=== PATIENT | female | born 1945 | race Caucasian/White ===

== ENCOUNTER 2017-11-04 01:08 | Observation (INO) | END 2017-11-06 16:15 | disposition home or self-care (01) ==

== ENCOUNTER 2019-04-10 10:55 | Emergency (ER) | payer MEDICARE, OTHER ==
[~2019-04-10] VITALS: Ht 160 cm; Wt 78.6 kg
[~2019-04-10 10:55] MED LIST: ASPI-1044 PO; ATOR40TA68 PO; BENA40TA54 PO; CALC-72 PO; ERGO500013 PO; NORT25CA PO; OMEP40CA6 PO; POTA10TA37 PO; TIOT18CA IH
[2019-04-10 10:58] VITALS: Ht 160 cm; Wt 78.6 kg
[2019-04-10] MEDS ORDERED: BACITRACIN 0.9 GM OINT TOP ONE (13:00)
[2019-04-10] MEDS ORDERED: DIPHTH/TET/ACEL PERTUSS (ADULT) 0.5 ML VIAL IM* ONE (13:00)
--- NOTE | 2019-04-10 13:22 | ERD ---
ER Documentation Chief Complaint Chief Complaint head/face injury x4 hours post slip/fall -JANNETTE DE DIOS This is a 73-year-old female with a past medical history of hypertension, hyperlipidemia, COPD, GERD who is presenting after a mechanical fall. The patient was walking when she lost her balance and fell forward. It was a ground-level fall. The patient did hit her face. She sustained abrasions to the face and a small superficial laceration to the bridge of the nose. The patient does have swelling around the right eye, but she does not have any ocular complaints. She does not endorse any vision changes. She has no blurry vision or double vision. The patient is able to move her eyes in all directions without discomfort or pain. The patient does not report any loss of consciousness. She does endorse mild aching around her injuries, but otherwise she feels well. The patient does not endorse any neck or back pain. She does not endorse any chest pain or trouble breathing. She does not endorse any abdominal pain. She does not endorse any cardiothoracic or abdominal injury. The patient was ambulatory after the event, but she does endorse landing on her knees when she fell. She does have mild soreness and a small abrasion to the right knee. The patient is able to range all extremities fully in the emergency department currently. She has no saddle anesthesia. She denies any incontinence or retention of urine or stool. The patient does not endorse a syncopal or near syncopal event. She is not lightheaded or dizzy. The patient does not know when her last tetanus shot was. ROS All systems reviewed and are negative except as per history of present illness. Medications Home Meds Reported Medications Calcium Carbonate-Vitamin D3 (Calcium 500 + Vit D 200 Caplet) 1 Each Tablet, 1 TAB PO DAILY, TAB 11/03/17 Ergocalciferol (Vitamin D2) (VITAMIN D2) 50,000 Unit Capsule, 94786 UNIT PO Q7D, CAP 11/03/17 Atorvastatin* (Atorvastatin*) 40 Mg Tablet, 40 MG PO QHS, #30 TAB 11/03/17 Nortriptyline Hcl* (Nortriptyline Hcl*) 25 Mg Capsule, 25 MG PO HS, CAP 11/03/17 Potassium Chloride* (K-Dur*) 10 Meq Tab.prt.sr, 10 MEQ PO DAILY, TAB 11/03/17 Tiotropium Capron* (Spiriva*) 18 Mcg Cap.w.dev, 18 MCG IH DAILY 08/08/13 Aspirin Delayed Release (Aspirin Delayed Release) 81 Mg Tablet.dr, 81 MG PO DAILY 08/08/13 Omeprazole* (Omeprazole*) 40 Mg Capsule.dr, 40 MG PO DAILY 08/08/13 Benazepril Hcl* (Lotensin*) 40 Mg Tablet, 40 MG PO DAILY 08/08/13 Allergies Allergies: Coded Allergies: No Known Drug Allergies (Verified Allergy, Mild, 11/03/17) No Known Allergies (Verified Allergy, Unknown, 11/04/17) PMhx/Soc History of Surgery: Yes (CHOLECYSTECTOMY) Anesthesia Reaction: No Hx Neurological Disorder: No Hx Respiratory Disorders: Yes (COPD) Hx Cardiac Disorders: Yes (HTN) Hx Psychiatric Problems: Yes (DEPRESSION) Hx Miscellaneous Medical Probl: No Hx Alcohol Use: No Hx Substance Use: No Hx Tobacco Use: No Smoking Status: Never smoker FmHx Family History: No diabetes Physical Exam Vitals Vital Signs Date Temp Pulse Resp B/P (MAP) Pulse Ox O2 O2 Flow FiO2 Time Delivery Rate 04/10/19 97.7 106 19 173/89 98 10:58 (117) Physical Exam Const: No apparent distress, well-developed, well-nourished Head: Normocephalic. Multiple abrasions to the right side of the face with right periorbital edema. No atwood sign. Eyes: Normal Conjunctiva. Extraocular movements intact. Pupils equal, round and reactive to light. No raccoon eyes. ENT: Normal External Ears and Mouth. Superficial laceration to the bridge of the nose. No hemotympanum. No evidence of oral injury. Neck: No midline spinal tenderness. Full range of motion. No meningismus. Resp: Clear to auscultation bilaterally, No wheezes, rales or rhonchi Cardio: Regular rate and rhythm. No murmurs, rubs or gallops Abd: Soft, non tender, non distended. Normal bowel sounds Skin: No petechiae or rashes Back: No midline tenderness. No CVA tenderness. Ext: No cyanosis, or edema. Full range of motion to all extremities. Small abrasion to the right knee. Neur: Awake and alert, oriented 4. Cranial nerves intact. No facial droop. Normal strength, sensation and coordination. Psych: Normal Mood and Affect Results 24 hrs Current Medications Medications Dose Sig/Gopal Start Time Status Last (Trade) Ordered Route PRN Stop Time Admin Dose Reason Admin Diphtheria/ 0.5 ml ONCE ONCE 04/10/19 DC 04/10/19 Tetanus/Acell IM* 13:00 12:40 Pertussis 04/10/19 13:01 (Adacel) Bacitracin 1 applic ONCE ONCE 04/10/19 DC 04/10/19 (Bacitracin TOP 13:00 12:40 Oint (Ud)) 04/10/19 13:01 Procedures/MDM MDM The patient's presentation warrants further investigation. Previous medical records, if available, were reviewed. IMAGING Imaging and Radiology interpretation reviewed. CT head FINDINGS: There is no intracranial hemorrhage, mass effect, or midline shift. No extra-axial fluid collection is seen. There is moderate diffuse cerebral volume loss with sulcal and ventricular dilatation. Ventricles are of normal configuration. Mild white matter disease is seen in both cerebral hemispheres with no associated mass effect. the sanchez white matter differentiation appears well-preserved. The visualized paranasal sinuses and osseous structures are grossly unremarkable. Noted is a right frontal scalp and right supra orbital soft tissue hematoma. No skull fracture is visualized. IMPRESSION: No intracranial hemorrhage or skull fracture. Right frontal scalp and supraorbital soft tissue hematoma. Atrophy with white matter disease compatible with chronic small vessel ischemia. Electronically viewed and signed by Rupesh Zheng MD on 04/10/2019 11:35 CT C-spine FINDINGS: The cervical lordosis is maintained. There is normal height of the vertebral bodies. Multilevel endplate and uncovertebral osteophytosis is seen. There is no bone destruction or sclerosis. Diffuse osteopenia is seen. The atlantoaxial joint demonstrates degenerative changes. There is no acute fracture or subluxation. No prevertebral or paravertebral soft tissue abnormality is seen. Mild disc height loss is seen posteriorly from C3-4 to C5-6. Posterior disc bulges are seen from C3-4 to C6-7. Multilevel foraminal stenosis is seen secondary to uncovertebral osteophytosis and facet arthropathy. No significant central canal stenosis is seen. IMPRESSION: No CT evidence of an acute fracture or subluxation. Mild degenerat jaiden spondylosis of the cervical spine. Electronically viewed and signed by Physician Troy on 04/10/2019 11:40 TREATMENT/DISPOSITION The patient presents after a trauma. The patient was evaluated fully without evidence of emergent posttraumatic pathology. The patient's CT imaging of the head and cervical spine are unremarkable. The patient has no focal deficits. I' ve low suspicion for intracranial pathology. I have low suspicion for cerebral ischemia or intracranial hemorrhage. The patient has no cervical spine tenderness. He can move his neck in all directions without any pain. As stated above, he does not have any focal deficits. He is not altered or intoxicated. He does not have any distracting injuries. The patient's cervical spine was c linically cleared using the Nexus C-spine rule. The patient does not have any saddle anesthesia. He has not been incontinent of urine or stool. He has not had any retention of urine or stool. I have low suspicion for spinal cord injury. The patient does have facial abrasions and some swelling. The patient's extraocular movements are intact. I do not suspect extraocular muscle e ntrapment. I do not suspect an emergent facial fracture and I do not feel the patient requires dedicated facial imaging. The patient does have a small superficial laceration to the bridge of the nose that may be repaired with Dermabond. The patient's chest x-ray does not reveal any evidence of pneumonia or pneumothorax or pulmonary edema or pleural effusion. The patient's cardio mediastinal silhouette is unremarkable. I do not suspect pericardial effusion. I do not see any mediastinal free air. I have low suspicion for esophageal tear or rupture. The patient does not have a widened mediastinum. The patient does not have chest pain radiating to the back. It does not have a sharp or tearing quality. I have low suspicion for thoracic aortic aneurysm or rupture or dissection. The patient's symptoms are not consistent with pulmonary embolism. The patient does not have any abdominal pain. I have low suspicion for posttraumatic intra-abdominal pathology. The patient's vital signs are unremarkable. I low suspicion for hepatic or splenic or renal trauma. The patient does not have any GI or urinary bleeding. I decreased suspicion for intestinal injury. I have low suspicion for urethral injury. I have low suspicion for extremity injury. She does have a minor abrasion to the right knee sustained during the fall, but she is amatory without issue. I do not suspect fracture dislocation. There is no evidence of any penetrating injuries. The patient required a tetanus shot in the emergency department today. PROCEDURE Performer: Laceration Repair by me: Anesthesia: None Location: Superficial laceration to the bridge of the nose Tendon/Joint/Nerves: No injury Foreign body: None detected after copious irrigation and exploration Technique: Dermabond Complexity: No subcutaneous sutures/mucosal repair/edge excision Post Closure Length: 1 cm Patient's bleeding was easily controlled in the department. No evidence of anemia, compartment syndrome, neurologic injury, vascular injury, open joint, tendon laceration, or foreign body. Patient is appropriate for outpatient follow up. 48 hour wound check recommended. Scar minimization instructions given. DISCHARGE Upon reevaluation of the patient, symptoms have improved. No emergent diagnoses were identified. At this time, I feel that the patient stable for discharge. The patient was instructed to follow-up with a primary care physician in 1-3 days. The patient will be given strict precautions with which to return to the emergency department. Prescriptions: None The patient's blood pressure was elevated at greater than 120/80 while in the emergency department. The patient was otherwise stable with no evidence of hypertensive urgency or emergency. The patient does not require admission for blood pressure control. I have discussed with the patient the risks of hypertension. I have instructed the patient to return to the ER for any new or worsening symptoms including chest pain, shortness of breath, headache, blurred vision, confusion, nausea, vomiting or LOC. I have advised the patient to follow up with the primary care physician for outpatient monitoring and treatment for hypertension in 1-3 days. Disclaimer: Inadvertent spelling and grammatical errors are likely due to EHR/dictation software use and do not reflect on the overall quality of patient care. Note that the electronic time recorded on this note does not necessarily r eflect the actual time of the patient encounter. Departure Diagnosis: Primary Impression: Fall from ground level Additional Impressions: Head trauma Encounter type: initial encounter Qualified Codes: S09.90XA - Unspecified injury of head, initial encounter Facial abrasion Encounter type: initial encounter Qualified Codes: S00.81XA - Abrasion of other part of head, initial encounter Nasal laceration Encounter type: initial encounter Qualified Codes: S01.21XA - Laceration without foreign body of nose, initial encounter Condition: Stable Patient Instructions: Facial Contusion, With Wakeup, Fall Prevention, Head Trauma (Traumatic Brain Injury), Laceration, All Additional Instructions: Thank you for for coming to [facility] for your care today. Please ask your nurse or provider if you have questions about your care today and do not leave until all your questions have been answered. Please use any medications given as directed and follow-up with your doctor (or the doctor you were referred to) in the next 1-3 days. If you do not have a primary care doctor you may follow up at the [facility] or [facility] (listed below). You may also use motrin and tylenol as needed for fever and/or pain unless instru cted otherwise by your provider or nurse. Indications for more urgent follow-up have been discussed, but you may return to the Emergency Department at ANY time for any worrisome or worsening symptoms. If you have abdominal pain, please know that no test or exam you received is perfect and you should follow up within 8 hours for continued pain. If you had any imaging studies today, such as an X-Ray or CT Scan, these studies will be reviewed later by a radiologist. You will be called if there are important findings that were not identified today, so make sure the contact information you provided at registration is correct. If you received any narcotic pain control medicine today, such as Vicodin, Morphine or Dilaudid, your coordination and judgment may be affected for a number of hours. Please do not drive or operate heavy machinery, and you may want someone to assist you at home. If you were given a prescription for narcotic medication, be aware that it is very addictive- use sparingly and only if necessary. PLEASE SEEK FURTHER EVALUATION AND MANAGEMENT AT YOUR DOCTORS OFFICE WITHIN THE NEXT 1-3 DAYS. IT IS YOUR RESPONSIBILITY TO MAKE AN APPOINTMENT FOR FOLOW-UP CARE. IF YOU HAVE A PRIMARY DOCTOR, PLEASE CALL THEIR OFFICE TO SCHEDULE AN APPOINTMENT FOR FOLLOW UP. IF YOU DO NOT HAVE A PRIMARY DOCTOR YOU CAN CALL OUR PHYSICIAN REFERRAL HOTLINE AT IF YOU CAN NOT AFFORD TO SEE A PHYSICIAN YOU CAN CHOSE FROM THE FOLLOWING [facility] CLINICS: [facility] [address] [facility] [address] [facility]. [facility] [address] [facility] [address] [facility] [address] [facility]. [facility] [address] EMMANUEL QUIJANO MD Apr 10, 2019 13:20
[2019-04-10] MEDS ORDERED: ACET325T33 PO (13:23)
[2019-04-10 13:30] VITALS: BP 167/85; PULSE 89; RESP 18
== END 2019-04-10 13:47 | disposition home or self-care (01) ==
LOC: E/R 10:55
DX: S01.21XA Laceration without foreign body of nose, initial encounter (principal); S80.211A Abrasion, right knee, initial encounter; I10 Essential (primary) hypertension; J44.9 Chronic obstructive pulmonary disease, unspecified; R40.2142 Coma scale, eyes open, spontaneous, at arrival to emergency department; R40.2362 Coma scale, best motor response, obeys commands, at arrival to emergency department; R40.2252 Coma scale, best verbal response, oriented, at arrival to emergency department; W18.39XA Other fall on same level, initial encounter; Y92.9 Unspecified place or not applicable; Z23 Encounter for immunization; Z79.82 Long term (current) use of aspirin
CPT/HCPCS: 70450; 72125; 90471; 90715